=== PATIENT | female | born 1985 | race Caucasian/White ===

== ENCOUNTER 2017-01-26 19:09 | Emergency (ER) | payer SELFPAY ==
[~2017-01-26] VITALS: Ht 162.6 cm; Wt 63.5 kg
[~2017-01-26 19:09] MED LIST: AMOX1TAB61 PO; DIPH25CA58 PO
[2017-01-26 19:21] VITALS: BP 122/83
[2017-01-26] MEDS ORDERED: AMOX500C PO (19:45)
--- NOTE | 2017-01-26 19:46 | PHYS DOC ---
Past Medical History Past Medical History: No Pertinent History Past Surgical History: No Surgical History Additional Information: 0.25 PPD Alcohol Use: Occasionally Drug Use: None Adult General Chief Complaint Chief Complaint: DENTAL PROBLEM HPI HPI Patient is a 31 year old female presents to the emergency department stating that she has dental pain from a fractured tooth which occurred 2 years ago. She states that she was eating the other night and more teeth seem to have broken off. Patient states she has not followed up with the dentist. She is taken Tylenol and ibuprofen for pain and discomfort. She has the #3 tooth that appears to be broken off. No swelling or drainage noted from the area. Review of Systems Review of Systems Constitutional: Denies fever or chills [] Eyes: Denies change in visual acuity, redness, or eye pain [] HENT: Denies nasal congestion or sore throat. Complaint of right upper dental pain Respiratory: Denies cough or shortness of breath [] Cardiovascular: No additional information not addressed in HPI [] GI: Denies abdominal pain, nausea, vomiting, bloody stools or diarrhea [] : Denies dysuria or hematuria [] Musculoskeletal: Denies back pain or joint pain [] Integument: Denies rash or skin lesions [] Neurologic: Denies headache, focal weakness or sensory changes [] Endocrine: Denies polyuria or polydipsia [] Allergies Allergies Allergies Coded Allergies Type Severity Reaction Last Updated Verified No Known Drug Allergies 09/13/15 No Physical Exam Physical Exam Constitutional: Well developed, well nourished, no acute distress, non-toxic appearance. [] HENT: Normocephalic, atraumatic, bilateral external ears normal, oropharynx moist, no oral exudates, nose normal. Bilateral tympanic membranes appear to be normal. Patient with a fractured tooth noted at the #3 area no drainage or discharge noted from the site. Patient with tenderness noted around the tooth. Eyes: PERRLA, EOMI, conjunctiva normal, no discharge. [] Neck: Normal range of motion, no tenderness, supple, no stridor. [] Cardiovascular:Heart rate regular rhythm, no murmur [] Lungs & Thorax: Bilateral breath sounds clear to auscultation [] Skin: Warm, dry, no erythema, no rash. [] Extremities: No tenderness, no cyanosis, no clubbing, ROM intact, no edema. [] Neurologic: Alert and oriented X 3, normal motor function, normal sensory function, no focal deficits noted. [] Psychologic: Affect normal, judgement normal, mood normal. [] Current Patient Data Vital Signs Vital Signs Date Time Temp Pulse Resp B/P (MAP) Pulse Ox O2 Delivery O2 Flow Rate FiO2 01/26/17 19:21 98.1 61 20 122/83 (96) 99 Room Air 98.1 EKG EKG [] Radiology/Procedures Radiology/Procedures [] Course & Med Decision Making Course & Med Decision Making Pertinent Labs and Imaging studies reviewed. (See chart for details) Patient was recommended to use dental wax over the tooth to help with pain and discomfort. Explained to patient that the area getting to the tooth is what's causing the pain. Also explained to patient that pain medication will not be effective with the tooth the dental wax will be more effective. Patient will be discharged home in stable condition she'll be provided with signs and symptoms to return back to the emergency department. She'll be provided with a prescription for amoxicillin patient agrees with discharge instructions, treatment regimens and follow-up recommendations. All questions and concerns was answered at the patient's bedside. [] Dragon Disclaimer Dragon Disclaimer This electronic medical record was generated, in whole or in part, using a voice recognition dictation system. Departure Departure Impression: Primary Impression: Pain, dental Additional Impression: Fractured tooth Disposition: 01 HOME, SELF-CARE Condition: STABLE Referrals: NO PCP (PCP) Patient Instructions: Dental Pain, [id number], Tooth Fracture Additional Instructions: Activity as tolerated Medication as prescribed Tylenol or Ibuprofen for pain Dental wax over the tooth will decrease the pain and discomfort Followup with dentist in 5-7 days Return to emergency department as needed for signs and symptoms that become worse. Scripts Amoxicillin (AMOXICILLIN) 500 Mg Capsule 1 CAP PO QID, #40 CAP Prov: OLIVIA LOPEZ APRN 01/26/17 Problem Qualifiers Additional Impression: Fractured tooth Encounter type: initial encounter Fracture type: closed Qualified Codes: S02.5XXA - Fracture of tooth (traumatic), initial encounter for closed fracture OLIVIA LOPEZ APRN Jan 26, 2017 19:46
== END 2017-01-26 20:10 | disposition home or self-care (01) ==
LOC: ER 19:09
DX: S02.5XXA Fracture of tooth (traumatic), initial encounter for closed fracture (principal); F17.200 Nicotine dependence, unspecified, uncomplicated; X58.XXXA Exposure to other specified factors, initial encounter; Y93.89 Activity, other specified; Y92.89 Other specified places as the place of occurrence of the external cause; Y99.8 Other external cause status
CPT/HCPCS: 99283

== ENCOUNTER → 2020-02-19 | Outpatient (CLI) | payer MEDICAID ==
[~2020-02-19] MED LIST changes: +AMOX500C PO
--- NOTE | 2020-02-19 15:12 | RAD ---
Examination: PREG MORE THAN OR EQ TO 14 WKS History: Size of Fetus Inconsistent with Dates Comparison/Correlation: None Findings: OB ultrasound exam was performed. Single intrauterine gestation is present. Cephalic lie noted. Placenta is at the posterior wall. Normal movement is present. Cardiac activity identified with 130 bpm. Four-chamber heart noted. breathing is not seen. Three-vessel cord and insertion identified. Fluid in the urinary bladder is noted. Stomach is identified. Kidneys are visualized and unremarkable. Spine is unremarkable. The ovary is unremarkable. Amniotic fluid index of 10.3 is present. Biparietal diameter of 8.16 corresponding 32 weeks 6 days. Head circumference of 29.44 cm corresponding to 32 weeks 4 days. Abdominal circumference of 27.21 cm corresponds to 31 weeks 2 days. Femur length is 5.66 cm corresponding 29 weeks 5 days. Head circumference to abdominal circumference ratio is 1.08. Estimated weight is 1689 g. Gestational age is 21 weeks 4 days. Ultrasound EDC is 04/18/2020. Maternal cervical length is 5.2 minutes. Impression: Single living intrauterine gestation with average ultrasound age of 31 weeks 4 days. This is 2 weeks greater than age by last menstrual period. EDC by ultrasound is 14 days sooner than by last menstrual period. Electronically signed by: Ifeanyi Santoyo MD (02/19/2020 3:10 PM) [facility]
== END ==
LOC: US 12:01
PROVIDERS: ATTEND Obstetrics & Gynecology
DX: Z32.01 Encounter for pregnancy test, result positive (principal); O26.843 Uterine size-date discrepancy, third trimester; Z3A.31 31 weeks gestation of pregnancy
CPT/HCPCS: 76805